=== PATIENT | female | born 1990 | race Caucasian/White ===

== ENCOUNTER 2018-01-23 19:04 | Emergency (ER) | payer OTHER ==
[2018-01-23 19:15] VITALS: BP 117/79; PULSE 97; TEMP 100; BMI 21.7
[2018-01-23] MEDS ORDERED: ACETAMINOPHEN 325 MG TABLET (FP) PO ONE (19:16)
--- NOTE | 2018-01-23 19:16 | PDOC ---
Rapid Medical Evaluation Chief Complaint: Cold Symptoms Time Seen by Provider: 01/23/18 19:10 Medical Evaluation: 01/23/18 19:11 c/o fever, ear pain, throat pain. + nausea and vomiting. denies abdominal pain, urinary symptoms. PE: patient alert ox3. + nasal congestion + cervical lymphadenopath breath sounds clear A: pharyngitis P: rapid strep tylenol patient to the ER for further management of care Discharge Disposition - Diagnosis URI (upper respiratory infection) Qualifiers: URI type: unspecified URI Qualified Code(s): J06.9 - Acute upper respiratory infection, unspecified - Referrals - Patient Instructions - Post Discharge Activity
--- NOTE | 2018-01-23 19:55 | PDOC ---
History of Present Illness - General Chief Complaint: Nausea/Vomiting Stated Complaint: VOMITING/sorethroat Time Seen by Provider: 01/23/18 19:10 - History of Present Illness Initial Comments: 27-year-old female without any comorbidities presents for evaluation of sore throat and fever times one day. She describes her pain as sharp and she swallows. She has no other associated symptoms. 01/23/18 19:52 Past History - Past Medical History Allergies/Adverse Reactions: Allergies Allergy/AdvReac Type Severity Reaction Status Date / Time No Known Allergies Allergy Verified 01/23/18 19:19 Home Medications: Ambulatory Orders NK [No Known Home Medication] 01/23/18 - Suicide/Smoking/Psychosocial Hx Smoking History: Never smoked Information on smoking cessation initiated: No Hx Alcohol Use: No Drug/Substance Use Hx: No Review of Systems - Review of Systems Constitutional: Yes: See HPI, Fever HEENTM: Yes: See HPI, Throat Pain All Other Systems: Reviewed and Negative *Physical Exam - Vital Signs Last Vital Signs Temp Pulse Resp BP Pulse Ox 100.0 F H 97 H 16 117/79 100 01/23/18 19:11 01/23/18 19:11 01/23/18 19:11 01/23/18 19:11 01/23/18 19:11 - Physical Exam Comments: GENERAL: The patient is awake, alert, and fully oriented, in no acute distress. HEAD: Normal with no signs of trauma. EYES: Pupils equal, round and reactive to light, extraocular movements intact, sclera anicteric, conjunctiva clear. ENT: Ears normal, nares patent, oropharynx minimally injected without exudates. Moist mucous membranes. NECK: Normal range of motion, supple without lymphadenopathy, JVD, or masses. LUNGS: Breath sounds equal, clear to auscultation bilaterally. No wheezes, and no crackles. HEART: Regular rate and rhythm, normal S1 and S2 without murmur, rub or gallop. ABDOMEN: Soft, nontender, normoactive bowel sounds. No guarding, no rebound. No masses. EXTREMITIES: Normal range of motion, no edema. No clubbing or cyanosis. No cords, erythema, or tenderness. NEUROLOGICAL: Cranial nerves II through XII grossly intact. Normal speech, normal gait. PSYCH: Normal mood, normal affect. SKIN: Warm, Dry, normal turgor, no rashes or lesions noted. 01/23/18 19:53 ED Treatment Course - ADDITIONAL ORDERS Additional order review: 01/23/18 19:22 Group A Strep Rapid Antigen - Preliminary Throat - Medications Given in the ED: ED Medications Discontinued Medications Generic Name Dose Route Start Last Admin Trade Name Floyd PRN Reason Stop Dose Admin Acetaminophen 650 mg 01/23/18 19:16 01/23/18 19:21 Tylenol - PO 01/23/18 19:17 650 mg ONCE ONE Administration Medical Decision Making - Medical Decision Making 27-year-old female healthy and active without comorbidities with a sore throat times one day. Her exam is unimpressive I await results of rapid strep. 01/23/18 19:55 *DC/Admit/Observation/Transfer Diagnosis at time of Disposition: Viral pharyngitis URI (upper respiratory infection) Qualifiers: URI type: unspecified URI Qualified Code(s): J06.9 - Acute upper respiratory infection, unspecified - Discharge Dispostion Disposition: HOME Condition at time of disposition: Stable Decision to Admit order: No - Referrals Referrals: Yamil Aldana [Non Staff, Medical] - - Patient Instructions Printed Discharge Instructions: Viral Pharyngitis, DI for Viral Pharyngitis Additional Instructions: This is viral pharyngitis. You're rapid strep was negative. A culture was sent so should you require antibiotics we will give you a call. In the meantime warm salt water gargles 3-5 times a day. Throat pain and Tylenol and Motrin Feer fever. Please follow-up with primary care physician in one to 2 days. Return to the emergency room if your symptoms worsen or go unresolved prior to follow-up. - Post Discharge Activity
== END 2018-01-23 20:15 | disposition home or self-care (01) ==
LOC: JERFT 19:04
DX: J06.9 Acute upper respiratory infection, unspecified (principal); J02.8 Acute pharyngitis due to other specified organisms; B97.89 Other viral agents as the cause of diseases classified elsewhere
CPT/HCPCS: 84703; 87070; 87430; 99281-25

== ENCOUNTER 2021-05-13 09:58 | Emergency (ER) | payer OTHER ==
[2021-05-13 10:38] VITALS: BP 101/72; PULSE 82; BMI 29.0
[2021-05-13 11:39] LABS: BASO % 0.3 % (0-2.0); EOS % 2.4 % (0-4.5); HEMATOCRIT 32.7 % (32.4-45.2); HEMOGLOBIN 11.1 GM/dL (10.7-15.3); LYMPH % 11.7 % (8-40); MCH 28.5 pg (25.7-33.7); MCHC 33.8 g/dl (32.0-36.0); MEAN CELL VOLUME 84.3 fl (80-96); MEAN PLT VOLUME 8.5 fl (7.5-11.1); MONO % 5.3 % (3.8-10.2); NEUT % 80.3 % (42.8-82.8); PLATELET COUNT 251 10^3/uL (134-434); RBC 3.88 M/mm3 (3.60-5.2); WHITE BLOOD COUNT 9.6 K/mm3 (4.0-10.0)
[2021-05-13 11:44] LABS: EPI CELLS 18 /uL (0-25.1); HYALINE CASTS 2 /uL (0-3.1); PH,URINE 7.5 (5.0-8.0); URINE APPEARANCE CLEAR; URINE BACTERIA 2080 /uL (0-1359); URINE BILIRUBIN NEGATIVE (NEGATIVE); URINE COLOR YELLOW; URINE GLUCOSE (UA) NEGATIVE (NEGATIVE); URINE KETONE NEGATIVE (NEGATIVE); URINE LEUK ESTERASE 3+ (NEGATIVE); URINE NITRITE NEGATIVE (NEGATIVE); URINE PROTEIN NEGATIVE (NEGATIVE); URINE RBC 33 /uL (0-23.9); URINE WBC 403 /uL (0-25.8)
[2021-05-13 11:58] LABS: CHLORIDE 108 mmol/L (98-107); SODIUM 138 mmol/L (136-145)
[2021-05-13 11:59] LABS: CALCIUM 8.5 mg/dL (8.5-10.1)
[2021-05-13 12:00] LABS: ALBUMIN 2.5 g/dl (3.4-5.0); ANION GAP 7 MMOL/L (8-16); BLOOD UREA NITROGEN 6.8 mg/dL (7-18); CO2 23 mmol/L (21-32)
[2021-05-13 12:01] LABS: GLUCOSE,RANDOM 75 mg/dL (74-106)
[2021-05-13 12:03] LABS: CREATININE 0.5 mg/dL (0.55-1.3); SGOT/AST 27 U/L (15-37); SGPT/ALT 13 U/L (13-61)
[2021-05-13 12:05] LABS: BILIRUBIN,TOTAL 0.5 mg/dL (0.2-1); TOT PROT 6.4 g/dl (6.4-8.2)
[2021-05-13 12:06] LABS: ALK PHOS 101 U/L (45-117)
[2021-05-13] MEDS ORDERED: CEPHALEXIN MONOHYDRATE 500 MG CAPSULE (UD) PO ONE (12:47)
[2021-05-13] MEDS ORDERED: CEPHALEXIN MONOHYDRATE 500 MG CAPSULE (UD) ONE (13:09)
[2021-05-13 14:08] VITALS: TEMP 98.3
== END 2021-05-13 14:35 | disposition home or self-care (01) ==
LOC: JER 09:58
DX: R82.71 Bacteriuria (principal); N39.0 Urinary tract infection, site not specified
CPT/HCPCS: 36415; 80053; 81003; 84484; 85025; 86850; 86900; 86901; 87086; 93005; 93010; 99284-25